=== PATIENT | male | born 1985 | race Caucasian/White ===

== ENCOUNTER 2017-09-25 11:48 | Emergency (ER) | payer OTHER ==
[2017-09-25] MEDS ORDERED: LORazepam INJ* 2 MG/ML 1 ML VIAL ONE (11:59)
--- NOTE | 2017-09-25 12:23 | RAD ---
HISTORY: Seizure COMPARISONS: None TECHNIQUE: Multiple contiguous axial CT scans were obtained of the head without intravenous contrast. FINDINGS: HEMORRHAGE/INFARCT: There is no hemorrhage or acute infarct. MASSES/SHIFT: There is no mass or shift. EXTRA-AXIAL SPACES: There are no extra-axial fluid collections. SULCI AND VENTRICLES: The sulci and ventricles are normal in size and position for the patient's stated age. CEREBRUM: There are no focal parenchymal abnormalities. BRAINSTEM: There are no focal parenchymal abnormalities. CEREBELLUM: There are no focal parenchymal abnormalities. VESSELS: The vessels are grossly normal. PARANASAL SINUSES: The paranasal sinuses are clear. ORBITS: The orbits are unremarkable. BONES AND SOFT TISSUE: No bone or soft tissue abnormalities are noted. OTHER: None IMPRESSION: NO ACUTE INTRACRANIAL PATHOLOGY.
[2017-09-25 12:40] LABS: Hematocrit 37 % (42-52); Hemoglobin 13.1 g/dl (14.0-18.0); Mean Corpuscular HGB Conc 35 g/dl (31-36); Mean Corpuscular Hemoglobin 31 pg (27-31); Mean Corpuscular Volume 89 fL (80-94); Mean Platelet Volume 10 um3 (7.4-10.4); Red Blood Count 4.21 10^6/ul (4.0-5.4); Red Cell Distribution Width 13 % (10.5-15); White Blood Count 5.6 10^3/ul (3.5-10.8)
[2017-09-25 12:59] LABS: Albumin 3.9 g/dL (3.2-5.2); BUN/Creatinine Ratio 19.8 (8-20); Calcium 8.2 mg/dL (8.6-10.3); EGFR African American 142.9 (>60); EGFR Non-African American 111.1 (>60); Globulin 2.4 g/dL (2-4); Potassium 3.8 mmol/L (3.5-5.0); Total Bilirubin 0.4 mg/dL (0.2-1.0); Total Protein 6.3 g/dL (6.4-8.9)
[2017-09-25 14:38] VITALS: BP 107/65
[2017-09-25] MEDS ORDERED: PHENobarbital TAB(*) 30 MG PO ONE (14:48)
--- NOTE | 2017-09-25 14:50 | ED ---
Agus Castaneda Angela, scribed for Marii Centeno MD on 09/25/17 at 1157 . Neurological HPI - HPI Summary HPI Summary: This pt is a 32 y/o male BIBA from [facility] presenting to [facility] c/o multiple seizure today. Pt reports he had about 13 seizures today. He is currently on Keppra. Pt states that his gabapentin and phenobarbital medications were dropped 1 week ago. Pt was first put on phenobarbital by neurologist in [facility]. Per report from EMS, [address] [place] [address] reported 8+ 30 second seizures and administered 2mg Ativan IV. EMS witnessed 2- 30 second seizures and administered 10mg Versed. Per correctional facilities, the pt was found seizing in his cell and it is unknown if he had a head strike. At 11:58 while in the ED, pt had another tonic-clonic seizure that lasted about 30-35 seconds. Pt was given 2 mg Ativan. At 12:02, the pt is in a postictal state at this point. - History of Current Complaint Chief Complaint: EDSeizure Stated Complaint: SEIZURE Hx Obtained From: Patient Onset/Duration: Started hours ago, Still Present Number of Seizures: 13 - approx Pain Intensity: 0 Episode Lasting: Seconds/Minutes - 35 seconds in the ED Syncope Context: Unwitnessed - at correctional facility, Witnessed - by EMS and in the ED (by Dr. Merida, nurse, and correctional officers) Frequency: Episodes x___ - approximately 13 Seizure Character: Generalized - tonic-clonic Alleviating: Other - Ativan Associated Signs and Symptoms: Positive: Seizure - Allergy/Home Medications Allergies/Adverse Reactions: Allergies Allergy/AdvReac Type Severity Reaction Status Date / Time Ciprofloxacin Allergy See Comment Verified 09/25/17 12:19 Phenytoin [From Dilantin] Allergy Hives/Diff. Verified 09/25/17 12:19 Breathing/I tching Home Medications: Home Medications Levetiracetam [Keppra 500] 1,500 mg PO BID 09/25/17 [History Confirmed 09/25/17] PMH/Surg Hx/FS Hx/Imm Hx Endocrine/Hematology History: Denies: Hx Diabetes Cardiovascular History: Denies: Hx Hypertension Neurological History: Reports: Hx Seizures Infectious Disease History: No Infectious Disease History: Denies: Traveled Outside the [place] in Last 30 Days - Social History Alcohol Use: None Substance Use Type: Reports: None Smoking Status (MU): Former Smoker Review of Systems Negative: Fever, Chills Neurological: Other - seizure and LOC All Other Systems Reviewed And Are Negative: Yes Physical Exam - Summary Physical Exam Summary: General: Well appearing, no pain distress Skin: Warm, Skin Color Reflects Adequate Perfusion, Dry Eyes: EOMI, VERONICA ENT: Pharynx normal, TMs normal Neck: Supple, nontender Respiratory: CTA, breath sounds present, no rhonchi, no wheezes, no rales Cardiovascular: RRR, no murmur, no rub, no gallop Abdomen: Soft, nontender, Non-distended, no guarding, no rebound Bowel: Present Musculoskeletal: HAO, No edema Neuro: Sensory/motor intact, A&Ox3, CN intact 2-12 Psych: Affect/mood appropriate Triage Information Reviewed: Yes Vital Signs On Initial Exam: Initial Vitals Temp Pulse Resp BP Pulse Ox 98.3 F 73 16 100/56 98 09/25/17 11:50 09/25/17 11:50 09/25/17 11:50 09/25/17 11:50 09/25/17 11:50 Vital Signs Reviewed: Yes Diagnostics - Vital Signs Vital Signs Temp Pulse Resp BP Pulse Ox 09/25/17 11:50 98.3 F 73 16 100/56 98 - Laboratory Lab Results: Lab Results 09/25/17 09/25/17 Range/Units 12:25 12:25 WBC 5.6 (3.5-10.8) 10^3/ul RBC 4.21 (4.0-5.4) 10^6/ul Hgb 13.1 L (14.0-18.0) g/dl Hct 37 L (42-52) % MCV 89 (80-94) fL MCH 31 (27-31) pg MCHC 35 (31-36) g/dl RDW 13 (10.5-15) % Plt Count 138 L (150-450) 10^3/ul MPV 10 (7.4-10.4) um3 Neut % (Auto) 70.6 (38-83) % Lymph % (Auto) 19.7 L (25-47) % Rusk % (Auto) 7.6 (1-9) % Eos % (Auto) 1.3 (0-6) % Baso % (Auto) 0.8 (0-2) % Absolute Neuts (auto) 4.0 (1.5-7.7) 10^3/ul Absolute Lymphs (auto) 1.1 (1.0-4.8) 10^3/ul Absolute Monos (auto) 0.4 (0-0.8) 10^3/ul Absolute Eos (auto) 0.1 (0-0.6) 10^3/ul Absolute Basos (auto) 0 (0-0.2) 10^3/ul Absolute Nucleated RBC 0 10^3/ul Nucleated RBC % 0 Sodium 140 (133-145) mmol/L Potassium 3.8 (3.5-5.0) mmol/L Chloride 108 (101-111) mmol/L Carbon Dioxide 26 (22-32) mmol/L Anion Gap 6 (2-11) mmol/L BUN 16 (6-24) mg/dL Creatinine 0.81 (0.67-1.17) mg/dL Est GFR ( Amer) 142.9 (>60) Est GFR (Non-Af Amer) 111.1 (>60) BUN/Creatinine Ratio 19.8 (8-20) Glucose 89 (70-100) mg/dL Calcium 8.2 L (8.6-10.3) mg/dL Total Bilirubin 0.40 (0.2-1.0) mg/dL AST 41 H (13-39) U/L ALT 45 (7-52) U/L Alkaline Phosphatase 67 (34-104) U/L Total Protein 6.3 L (6.4-8.9) g/dL Albumin 3.9 (3.2-5.2) g/dL Globulin 2.4 (2-4) g/dL Albumin/Globulin Ratio 1.6 (1-3) Result Diagrams: 09/25/17 12:25 09/25/17 12:25 Lab Statement: Any lab studies that have been ordered have been reviewed, and results considered in the medical decision making process. - CT Brain CT CT Interpretation: No Acute Changes - IMPRESSION: No acute intracranial pathology. ED physician has reviewed this radiology report and agrees. CT Interpretation Completed By: Radiologist Course/Dx - Course Course Of Treatment: 32 yo male who reportedly had several seizures in shelter with a seizure here without a post ictal period he reports he was taken off his phenobaritol which was stabilizing in terms of his seizures. he was given one dose here and re-started on his 100mg po qhs dose - Differential Dx Differential Diagnoses Neuro: Positive: Seizure Disorder - Diagnoses Provider Diagnoses: Seizure Discharge - Discharge Plan Condition: Stable Disposition: HOME Prescriptions: PHENobarbital TAB(*) 100 mg PO BEDTIME #30 tab MDD 100 mg Referrals: Non Staff,Doctor [Medical Doctor] - Additional Instructions: Please follow up with your primary care provider. RETURN TO THE ED FOR ANY WORSENING SYMPTOMS. The documentation as recorded by the Agus zapata Angela accurately reflects the service I personally performed and the decisions made by me, Marii Centeno MD.
[2017-09-25 14:53] LABS: Urine Bacteria Absent (Absent); Urine Bilirubin Negative (Negative); Urine Glucose Negative (Negative); Urine Nitrite Negative (Negative)
== END 2017-09-25 15:03 | disposition home or self-care (01) ==
LOC: EEVIPCON 11:48 → ED 11:48
DX: R56.9 Unspecified convulsions (principal); Z87.891 Personal history of nicotine dependence
CPT/HCPCS: 36415; 70450; 80053; 80177; 81003; 81015; 85025; 96374; 99284; A9270-GY; J2060

== ENCOUNTER 2017-09-26 12:17 | Emergency (ER) | payer OTHER ==
[2017-09-26] MEDS ORDERED: NS 0.9% IV ONE ×2 (12:43→14:00)
[2017-09-26] MEDS ORDERED: PHENOBARBITAL IV ONE ×2 (12:43→14:00)
[2017-09-26 13:07] LABS: Hematocrit 38 % (42-52); Hemoglobin 13.2 g/dl (14.0-18.0); Mean Corpuscular HGB Conc 35 g/dl (31-36); Mean Corpuscular Hemoglobin 31 pg (27-31); Mean Corpuscular Volume 89 fL (80-94); Mean Platelet Volume 10 um3 (7.4-10.4); Red Blood Count 4.23 10^6/ul (4.0-5.4); Red Cell Distribution Width 13 % (10.5-15); White Blood Count 4.8 10^3/ul (3.5-10.8)
[2017-09-26 13:21] LABS: ALT 40 U/L (7-52); AST 32 U/L (13-39); Albumin 3.9 g/dL (3.2-5.2); Alkaline Phosphatase 67 U/L (34-104); Anion Gap 6 mmol/L (2-11); BUN/Creatinine Ratio 15.5 (8-20); Blood Urea Nitrogen 11 mg/dL (6-24); CO2 Carbon Dioxide 25 mmol/L (22-32); Calcium 8.7 mg/dL (8.6-10.3); Chloride 107 mmol/L (101-111); EGFR African American 166.4 (>60); EGFR Non-African American 129.4 (>60); Globulin 2.5 g/dL (2-4); Glucose 83 mg/dL (70-100); Magnesium 1.8 mg/dL (1.9-2.7); Potassium 3.6 mmol/L (3.5-5.0); Sodium 138 mmol/L (133-145); Total Protein 6.4 g/dL (6.4-8.9)
[2017-09-26] MEDS ORDERED: PHENobarbital TAB(*) 100 MG PO ONE (15:30)
[2017-09-26 15:31] LABS: Urine Bilirubin Negative (Negative); Urine Glucose Negative (Negative); Urine Nitrite Negative (Negative)
[2017-09-26 16:07] VITALS: BP 110/64
--- NOTE | 2017-09-27 18:15 | ED ---
Hoang Castaneda Thomas, scribed for Marcial Merida MD on 09/26/17 at 1325 . Neurological HPI - HPI Summary HPI Summary: The pt is a 32 [facility] s/p 4-5 seizures that occurred earlier today. Before the seizures, the patient was dizzy, lightheaded, anxious, and had a metallic feeling in his mouth. He has been evaluated by a neurologist in [place], [place]. The patient is accompanied by two fpc guards. Per EMR from the patients visit at [facility] ED yesterday, He is currently on Keppra. Pt states that his gabapentin and phenobarbital medications were dropped 1 week ago. Pt was first put [facility]. Yesterday, the patient had a negative CT Brain. He was given phenobarbital 100mg yesterday. - History of Current Complaint Chief Complaint: EDSeizure Stated Complaint: SEIZURE Time Seen by Provider: 09/26/17 12:26 Hx Obtained From: Patient Onset/Duration: Sudden Onset, Started hours ago - seizures occurred earlier today, Still Present Number of Seizures: 4 Pain Intensity: 0 Pain Scale Used: 0-10 Numeric Aggravating: Nothing Alleviating: Nothing Associated Signs and Symptoms: Positive: Dizziness - Allergy/Home Medications Allergies/Adverse Reactions: Allergies Allergy/AdvReac Type Severity Reaction Status Date / Time Ciprofloxacin Allergy See Comment Verified 09/25/17 12:19 Phenytoin [From Dilantin] Allergy Hives/Diff. Verified 09/25/17 12:19 Breathing/I tching Home Medications: Home Medications Levetiracetam [Keppra-] 1,500 mg PO BID 09/26/17 [History Confirmed 09/26/17] Phenobarbital 32.4 mg PO BID 09/26/17 [History Confirmed 09/26/17] PMH/Surg Hx/FS Hx/Imm Hx Previously Healthy: No Endocrine/Hematology History: Denies: Hx Diabetes Cardiovascular History: Denies: Hx Hypertension Neurological History: Reports: Hx Seizures - Surgical History Surgery Procedure, Year, and Place: When I ask the patient his FHx, he does not respond. Infectious Disease History: No Infectious Disease History: Denies: Traveled Outside the [place] in Last 30 Days - Family History Known Family History: Positive: Other - When I ask the patient his FHx, he does not respond - Social History Alcohol Use: None Substance Use Type: Reports: None Smoking Status (MU): Former Smoker Review of Systems Neurological: Other - Seizures, dizzines, lightheadedness, metallic feeling in mouth Positive: Anxious All Other Systems Reviewed And Are Negative: Yes Physical Exam - Summary Physical Exam Summary: VITAL SIGNS: Reviewed. GENERAL: Patient is a well-developed and nourished male who is lying comfortable in the stretcher. Patient is not in any acute respiratory distress. HEAD AND FACE: No signs of trauma. No ecchymosis, hematomas or skull depressions. No sinus tenderness. EYES: PERRLA, EOMI x 2, No injected conjunctiva, no nystagmus. EARS: Hearing grossly intact. Ear canals and tympanic membranes are within normal limits. MOUTH: Oropharynx within normal limits. NECK: Supple, trachea is midline, no adenopathy, no JVD, no carotid bruit, no c- spine tenderness, neck with full ROM. CHEST: Symmetric, no tenderness at palpation LUNGS: Clear to auscultation bilaterally. No wheezing or crackles. CVS: Regular rate and rhythm, S1 and S2 present, no murmurs or gallops appreciated. ABDOMEN: Soft, non-tender. No signs of distention. No rebound no guarding, and no masses palpated. Bowel sounds are normal. EXTREMITIES: FROM in all major joints, no edema, no cyanosis or clubbing. NEURO: Alert and oriented x 3. No acute neurological deficits. Speech is normal and follows commands. SKIN: Dry and warm Triage Information Reviewed: Yes Vital Signs On Initial Exam: Initial Vitals Temp Pulse Resp BP Pulse Ox 97.8 F 88 20 108/62 100 09/26/17 12:30 09/26/17 12:30 09/26/17 12:30 09/26/17 12:30 09/26/17 12:30 Vital Signs Reviewed: Yes - Blake Coma Scale Coma Scale Total: 15 Diagnostics - Vital Signs Vital Signs Temp Pulse Resp BP Pulse Ox 09/26/17 12:30 97.8 F 88 20 108/62 100 - Laboratory Lab Results: Lab Results 09/26/17 09/26/17 Range/Units 12:50 12:50 WBC 4.8 (3.5-10.8) 10^3/ul RBC 4.23 (4.0-5.4) 10^6/ul Hgb 13.2 L (14.0-18.0) g/dl Hct 38 L (42-52) % MCV 89 (80-94) fL MCH 31 (27-31) pg MCHC 35 (31-36) g/dl RDW 13 (10.5-15) % Plt Count 149 L (150-450) 10^3/ul MPV 10 (7.4-10.4) um3 Neut % (Auto) 66.6 (38-83) % Lymph % (Auto) 24.1 L (25-47) % Brooke % (Auto) 7.3 (1-9) % Eos % (Auto) 1.0 (0-6) % Baso % (Auto) 1.0 (0-2) % Absolute Neuts (auto) 3.2 (1.5-7.7) 10^3/ul Absolute Lymphs (auto) 1.2 (1.0-4.8) 10^3/ul Absolute Monos (auto) 0.4 (0-0.8) 10^3/ul Absolute Eos (auto) 0 (0-0.6) 10^3/ul Absolute Basos (auto) 0 (0-0.2) 10^3/ul Absolute Nucleated RBC 0 10^3/ul Nucleated RBC % 0.1 Sodium 138 (133-145) mmol/L Potassium 3.6 (3.5-5.0) mmol/L Chloride 107 (101-111) mmol/L Carbon Dioxide 25 (22-32) mmol/L Anion Gap 6 (2-11) mmol/L BUN 11 (6-24) mg/dL Creatinine 0.71 (0.67-1.17) mg/dL Est GFR ( Amer) 166.4 (>60) Est GFR (Non-Af Amer) 129.4 (>60) BUN/Creatinine Ratio 15.5 (8-20) Glucose 83 (70-100) mg/dL Calcium 8.7 (8.6-10.3) mg/dL Magnesium 1.8 L (1.9-2.7) mg/dL Total Bilirubin 0.60 (0.2-1.0) mg/dL AST 32 (13-39) U/L ALT 40 (7-52) U/L Alkaline Phosphatase 67 (34-104) U/L Total Protein 6.4 (6.4-8.9) g/dL Albumin 3.9 (3.2-5.2) g/dL Globulin 2.5 (2-4) g/dL Albumin/Globulin Ratio 1.6 (1-3) Phenobarbital Pending Result Diagrams: 09/26/17 12:50 09/26/17 12:50 Lab Statement: Any lab studies that have been ordered have been reviewed, and results considered in the medical decision making process. Course/Dx - Course Assessment/Plan: The pt is a 32 BIBA from [facility] s/p 4-5 seizures that occurred earlier today. Before the seizures, the patient was dizzy, lightheaded, anxious, and had a metallic feeling in his mouth. He has been evaluated by a neurologist in [place], [place]. The patient is accompanied by two fpc guards. Per EMR from the patients visit at [facility] yesterday, He is currently on Keppra. Pt states that his gabapentin and phenobarbital medications were dropped 1 week ago. Pt was first put on phenobarbital by [facility]. Yesterday, the patient had a negative CT Brain. He was given phenobarbital 100mg yesterday. Test results are without any significant abnormalities except for a slight anemia, magnesium of 1.8, and phenobarbital levels less than 5. At this time, I discussed the physical exam and findings with Dr. Watson, who recommends the patient be given 800mg [id number] IV and 400mg PO. He also recommends the patient be discharged home with follow up at the patients neurologist and for the patient to continue taking phenobarbital as indicated. At this point, the patient is hemodynamically stable and alert and oriented x3. I discussed the findings, test results, and plan with the patient, and he agrees to leave. - Differential Dx Differential Diagnoses Neuro: Positive: Headache, Seizure Disorder - Diagnoses Provider Diagnoses: Seizures - Physician Notifications Discussed Care Of Patient With: Yan Watson Time Discussed With Above Provider: 12:30 Instructed by Provider To: Other - I consulted with Dr. Watson, neurology, who recommends 800mg phenobarbitol--400mg IV and 400mg PO. He also recommends follow up with the patient's neurologist. Discharge - Discharge Plan Condition: Stable Disposition: HOME Patient Education Materials: Nonepileptic Seizures (ED) Referrals: Non Staff,Doctor [Primary Care Provider] - Additional Instructions: Follow up at the [facility] in three days. The documentation as recorded by the Hoang zapata Thomas accurately reflects the service I personally performed and the decisions made by me, Marcial Merida MD.
== END 2017-09-26 16:06 | disposition home or self-care (01) ==
LOC: ED 12:17
DX: G40.909 Epilepsy, unspecified, not intractable, without status epilepticus (principal); Z87.891 Personal history of nicotine dependence
CPT/HCPCS: 36415; 80053; 80184; 81003; 83735; 85025; 96360; 99283; A9270-GY; J2560